=== PATIENT | male | born 1980 | race Caucasian/White ===

== ENCOUNTER 2020-08-13 03:01 | Inpatient (IN) | payer MEDICAID ==
[~2020-08-13] VITALS: Ht 177.8 cm; Wt 75.0 kg
[~2020-08-13 03:01] MED LIST: BUPR1FIL3 SL; LISI40TA4 PO
[2020-08-13] MEDS ORDERED: vancomycin/NS 1 GM ADD-VANTAGE 250 ML IV ONE (04:30)
[2020-08-13] MEDS ORDERED: morphine 4 MG/ML inj SYRINge IV ONE (04:30)
[2020-08-13 05:48] LABS: ALANINE AMINOTRANSFERASE 24 U/L (12-78); ALBUMIN/GLOBULIN RATIO 0.9 (1.1-1.5); ALKALINE PHOSPHATASE 98 IU/L (46-116); ANION GAP 7 (8-16); ASPARTATE AMINO TRANSFERASE 15 U/L (10-37); BILIRUBIN,TOTAL 0.2 MG/DL (0.1-1.0); BLOOD UREA NITROGEN 16 MG/DL (7-18); BUN/CREATININE RATIO 21.1 (5.4-32.0); CHLORIDE 104 MMOL/L (99-107); CREATININE 0.76 MG/DL (0.60-1.10); GLUCOSE 99 MG/DL (70-104); POTASSIUM 3.5 MMOL/L (3.5-5.1); SODIUM 139 MMOL/L (135-145); TOTAL CARBON DIOXIDE 27.6 MMOL/L (24-32); TOTAL PROTEIN 6.4 G/DL (6.4-8.2); eGFR > 90 ML/MIN
[2020-08-13 06:11] LABS: BASOPHILS % (AUTO) 0.5 % (0-1); EOSINOPHILS # (AUTO) 0.2 X10'3 (0-0.9); EOSINOPHILS % (AUTO) 3.1 % (0-6); HEMATOCRIT 30.9 % (42.0-52.0); HEMOGLOBIN 10.4 g/dl (14.0-17.9); LYMPHOCYTES # (AUTO) 1.5 X10'3 (1.1-4.8); LYMPHOCYTES % (AUTO) 21.8 % (21-51); MEAN CORPUSCULAR HGB CONC 33.7 g/dL (33.0-36.5); MEAN CORPUSCULAR VOLUME 89.1 FL (78-98); MEAN PLATELET VOLUME 7.6 FL (7.4-10.4); MONOCYTES # (AUTO) 0.9 X10'3 (0-0.9); MONOCYTES % (AUTO) 13.8 % (2-12); NEUTROPHILS # (AUTO) 4.2 X10'3 (1.8-7.7); NEUTROPHILS % (AUTO) 60.8 % (42-75); PLATELET COUNT 162 X10'3 (140-440); RED BLOOD COUNT 3.46 X10'6 (4.70-6.10); WHITE BLOOD COUNT 6.9 X10'3 (4.5-11.0)
[2020-08-13 08:09] VITALS: BP 158/88
[2020-08-13] MEDS ORDERED: normal saline 1000ml 1,000 ML IV SCH ×2 (08:16→10:25)
[2020-08-13] MEDS ORDERED: mag hydrox/Alum hydrox/simeth 30ml oral suspension PO PRN (08:20)
[2020-08-13] MEDS ORDERED: acetaminophen 325mg tablet PO PRN ×2 (08:20→10:25)
[2020-08-13] MEDS ORDERED: magnesium hydroxide 30ml (MOM) UD suspension PO PRN (08:20)
[2020-08-13] MEDS ORDERED: ondansetron/PF 4mg/2ml inj IV PRN ×2 (08:20→10:25)
[2020-08-13] MEDS ORDERED: potassium CL 10mEq/100ml bag 100 ML IV PRN ×2 (10:25)
[2020-08-13] MEDS ORDERED: HYDROcodone/acetaminophen 5mg/325mg tablet PO PRN (10:25)
[2020-08-13] MEDS ORDERED: magnesium 4gm in 100ml NS 100 ML IV PRN (10:25)
[2020-08-13] MEDS ORDERED: magnesium 2GM in 50ml NS 50 ML IV PRN (10:25)
[2020-08-13] MEDS ORDERED: magnesium Cl slow-release 64mg tablet PO PRN (10:25)
[2020-08-13] MEDS ORDERED: potassium Cl 20 mEq SR tablet PO PRN ×2 (10:25)
[2020-08-13] MEDS ORDERED: vancomycin/NS 1 GM ADD-VANTAGE 250 ML IV SCH (13:00)
[2020-08-13] MEDS ORDERED: K and/or MAG REPLACEMENT MC SCH (20:00)
[2020-08-13] MEDS ORDERED: docusate sod 100mg capsule PO SCH (20:00)
== END 2020-08-13 11:08 | disposition left against medical advice (07) | DRG 383 ==
LOC: ER 03:01 → ED HOLD 08:16 → MERGE 08:16 → ORTHO 4S 11:01
PROVIDERS: ADMIT Internal Medicine; ATTEND Internal Medicine
DX: L03.114 Cellulitis of left upper limb (principal); I10 Essential (primary) hypertension; F17.200 Nicotine dependence, unspecified, uncomplicated; Z53.29 Procedure and treatment not carried out because of patient's decision for other reasons; Z88.0 Allergy status to penicillin
CPT/HCPCS: 36415; 73130; 80053; 85025; 87081; 99285; G0378; J2270; J3370; J7030

== ENCOUNTER 2020-08-30 18:04 | Emergency (ER) | payer MEDICAID ==
[~2020-08-30] VITALS: Ht 177.8 cm; Wt 81.8 kg
[~2020-08-30 18:04] MED LIST changes: +LIDOcaine 1% W/epiNEPHrine 1:100,000 20ml vial ONE
[2020-08-30 18:16] VITALS: BP 156/98
[2020-08-30] MEDS ORDERED: SULF1TAB49 PO (18:51)
[2020-08-30] MEDS ORDERED: CEPH-572 PO (18:51)
[2020-08-30] MEDS ORDERED: cephalexin 250mg capsule PO ONE (18:55)
[2020-08-30] MEDS ORDERED: sulfamethoxazole/trimethoprim DS (800/160mg) tablet PO ONE (18:55)
== END 2020-08-30 19:27 | disposition home or self-care (01) ==
LOC: ER 18:04
DX: L02.01 Cutaneous abscess of face (principal); I10 Essential (primary) hypertension; Z59.0 Homelessness; Z88.0 Allergy status to penicillin; Z79.2 Long term (current) use of antibiotics; Z79.899 Other long term (current) drug therapy
CPT/HCPCS: 10060; 99283

== ENCOUNTER 2020-11-18 19:59 | Emergency (ER) | payer MEDICAID ==
[~2020-11-18] VITALS: Ht 177.8 cm; Wt 62.8 kg
[~2020-11-18 19:59] MED LIST changes: -LIDOcaine 1% W/epiNEPHrine 1:100,000 20ml vial ONE
[2020-11-18 20:06] VITALS: BP 177/116
[2020-11-18] MEDS ORDERED: ketorolac trometh inj. 60 MG/2 ML VIAL IM ONE (20:25)
[2020-11-18] MEDS ORDERED: HYDROcodone/acetaminophen 5mg/325mg tablet PO ONE (20:25)
[2020-11-18] MEDS ORDERED: ORPH100T2 PO (20:25)
[2020-11-18] MEDS ORDERED: NAPR-56 PO (20:25)
[2020-11-18] MEDS ORDERED: orphenadrine citrate 60mg/2ml inj. IM ONE (20:25)
[2020-11-18] MEDS ORDERED: HYDR-4383 PO (20:25)
== END 2020-11-18 20:58 | disposition home or self-care (01) ==
LOC: ER 19:59
DX: S39.012A Strain of muscle, fascia and tendon of lower back, initial encounter (principal); M54.32 Sciatica, left side; M62.838 Other muscle spasm; I10 Essential (primary) hypertension; Z59.0 Homelessness; Z88.0 Allergy status to penicillin; Z79.899 Other long term (current) drug therapy; X58.XXXA Exposure to other specified factors, initial encounter; Y93.89 Activity, other specified; Y92.89 Other specified places as the place of occurrence of the external cause; Y99.8 Other external cause status
CPT/HCPCS: 96372; 99284; J1885; J2360

== ENCOUNTER 2023-11-05 09:43 | Emergency (ER) | payer MEDICAID ==
[~2023-11-05] VITALS: Ht 177.8 cm; Wt 70.5 kg
[~2023-11-05 09:43] MED LIST changes: -BUPR1FIL3 SL; -LISI40TA4 PO; +NO HOME MEDS
[2023-11-05] MEDS ORDERED: cloNIDine 0.1 mg tablet PO ONE ×3 (10:15→12:05)
[2023-11-05] MEDS ORDERED: lisinopril 10 MG tablet PO ONE (10:35)
[2023-11-05 12:30] VITALS: BP 197/118; PULSE 72; RESP 18; TEMP 98; O2SAT 100
== END 2023-11-05 12:32 | disposition home or self-care (01) ==
LOC: ER 09:44
DX: I10 Essential (primary) hypertension (principal); Z59.00 Homelessness unspecified; Z88.0 Allergy status to penicillin; Z79.899 Other long term (current) drug therapy
CPT/HCPCS: 93005; 99285

== ENCOUNTER 2025-02-28 12:21 | Emergency (ER) | payer MEDICAID ==
[2025-02-28 12:26] VITALS: BP 178/127; PULSE 94; RESP 18; TEMP 97.5; O2SAT 100
[2025-02-28] MEDS ORDERED: AMLO10TA5 PO (13:08)
[2025-02-28] MEDS ORDERED: LISI20TA28 PO (13:08)
== END 2025-02-28 13:32 | disposition home or self-care (01) ==
LOC: ER 12:21
DX: I10 Essential (primary) hypertension (principal); Z76.0 Encounter for issue of repeat prescription; Z88.0 Allergy status to penicillin
CPT/HCPCS: 99281

== ENCOUNTER 2025-08-19 09:22 | Emergency (ER) | payer MEDICAID ==
[~2025-08-19] VITALS: Ht 177.8 cm; Wt 69.7 kg
[~2025-08-19 09:22] MED LIST changes: +AMLO10TA5 PO
[2025-08-19 09:35] VITALS: BP 163/131; PULSE 87; RESP 18; TEMP 97.3; O2SAT 98
[2025-08-19] MEDS ORDERED: AMLO10TA13 PO (10:00)
[2025-08-19] MEDS ORDERED: LISI20TA28 PO (10:00)
--- NOTE | 2025-08-19 10:01 | Physician Documentation ---
HPI ~ General Chief Complaint: Medication Refill Stated Complaint: HIGH BP Time Seen by MD: 10:01 Primary Medical Doctor: DEVIN VARGAS History of Present Illness HPI Comments This is a 45-year-old male with a history of hypertension who presents requesting refills of his amlodipine 10 mg daily and lisinopril 20 mg daily. He reports that he has not been successful in finding a primary care provider. However, he has recently turned in the packet and we will be seeing a provider at [facility] within the next month. He denies any other symptoms or concerns to include chest pain or shortness of breath, fever or chills. Medication Reconciliation Allergies: Coded Allergies: Penicillins (Unverified Allergy, Intermediate, 02/28/25) Uncoded Allergies: PENCILLINS (Allergy, Intermediate, HIVES, 08/13/20) Scheduled Amlodipine Besylate (Norvasc), 1 TAB PO DAILY Amlodipine Besylate (Amlodipine Besylate), 1 TAB PO DAILY Lisinopril (Lisinopril), 1 TAB PO DAILY Miscellaneous Medications Home Med List (No Home Medications), (Reported) Past Medical History Past Medical History: Hypertension Past Surgical History: no surgical history Alcohol Use: None Drug Use: none Lives In: Homeless Review of Systems ROS As stated above in the HPI, otherwise all systems are reviewed and negative. Physical Exam Physical Exam Vital Signs: Temperature: 97.3, Source: Oral, Heart Rate: 87, Respiratory Rate: 18, BP: 163/131, Pulse Oximetry: 98, Weight: 69.700 Physical Exam General: Alert, no apparent distress. Neck: Full range of motion. Respiratory: Lungs clear, no respiratory distress. Chest: No accessory muscle use. Cardiovascular: Regular rate and rhythm, no murmurs. Gastrointestinal: Soft, nontender, nondistended. Bowels sounds present. Extremities: Normal range of motion, no deformity. Neurologic: Oriented x4. Psychiatric: Normal mood and affect. Skin: Normal color, warm and dry. No edema, no ecchymosis. Progress Results/Orders Results/Orders Vital Signs 08/19/25 09:35 Temp 97.3 Pulse 87 Resp 18 B/P (MAP) 163/131 Pulse Ox 98 Medical Decision Making Differential Dx:Considerations: Include: Adverse circumstances, Economic, Psychosocial, Medical services unavail., Medication refill, Medication non- compliance Departure Time of Disposition: 10:00 Disposition: 01 HOME / SELF CARE / HOMELESS Impression: Primary Impression: General medical exam Additional Impression: Hypertension Discharge Instructions: Hypertension, Adult Additional Instructions: You were provided with a month refill of your blood pressure medications. Please continue to work on finding a primary care for further refills. Return to the emergency department with any emergent needs or concerns. Referrals: NO PRIMARY CARE PROVIDER (PCP) Prescriptions Amlodipine Besylate (Amlodipine Besylate) 10 Mg Tablet 1 TAB PO DAILY for 30 Days, #30 TAB 0 Refills Prov: DANIA ZABALA NP 08/19/25 Lisinopril (Lisinopril) 20 Mg Tablet 1 TAB PO DAILY for 30 Days, #30 TAB Prov: DANIA ZABALA NP 08/19/25 Education Educated: Patient Educated regarding: diagnosis, treatment, prognosis, need for follow up Signature Scribe Signature: x Attestation: The note accurately reflects work and decisions made by me.Dania Salazar NP 08/19/25 10:34 DANIA ZABALA NP Aug 19, 2025 10:01
== END 2025-08-19 10:08 | disposition home or self-care (01) ==
LOC: ER 09:23
DX: I10 Essential (primary) hypertension (principal); Z88.0 Allergy status to penicillin
CPT/HCPCS: 99281; 99282

== ENCOUNTER 2025-09-26 08:52 | Emergency (ER) | payer MEDICAID ==
[~2025-09-26] VITALS: Ht 177.8 cm; Wt 75.6 kg
[~2025-09-26 08:52] MED LIST changes: +AMLO10TA13 PO
[2025-09-26 08:56] VITALS: BP 145/96; PULSE 67; RESP 16; TEMP 98; O2SAT 98
[2025-09-26] MEDS ORDERED: LISI20TA28 PO (09:07)
[2025-09-26] MEDS ORDERED: AMLO-888 PO (09:07)
--- NOTE | 2025-09-26 09:07 | Physician Documentation ---
HPI ~ General Chief Complaint: Medication Refill Stated Complaint: MED REQUEST Time Seen by MD: 08:56 Primary Medical Doctor: DEVIN MAJANO [facility] History of Present Illness HPI Comments 45-year-old male present as the presents to the ED requesting medication refill for both amlodipine and lisinopril. Denies any cardiac symptoms shortness of breath nausea vomit Medication Reconciliation Allergies: Coded Allergies: Penicillins (Unverified Allergy, Intermediate, 02/28/25) Uncoded Allergies: PENCILLINS (Allergy, Intermediate, HIVES, 08/13/20) Scheduled Amlodipine Besylate (Norvasc), 1 TAB PO DAILY Amlodipine Besylate (Amlodipine Besylate), 1 TAB PO DAILY Miscellaneous Medications Home Med List (No Home Medications), (Reported) Discontinued Medications Lisinopril (Lisinopril), 1 TAB PO DAILY Discontinued Reason: Auto Discontinued Past Medical History Past Medical History: Hypertension Past Surgical History: no surgical history Alcohol Use: None Drug Use: none Lives In: Homeless Review of Systems All Other Systems at this time: Reviewed and Negative ROS As stated above in the HPI, otherwise all systems are reviewed and negative. Physical Exam Physical Exam Vital Signs: Temperature: 98.0, Source: Oral, Heart Rate: 67, Respiratory Rate: 16, BP: 145/96, Pulse Oximetry: 98, Weight: 75.600 Oxygen Flow Rate: 0 Physical Exam General: Alert, no apparent distress. HEENT: PERRL, EOMI, no injection, moist mucous membranes. Neck: Full range of motion. Respiratory: Lungs clear, no respiratory distress. Chest: No accessory muscle use. Cardiovascular: Regular rate and rhythm, no murmurs. Gastrointestinal: Soft, nontender, nondistended. Bowels sounds present. Extremities: Normal range of motion, no deformity. Neurologic: Oriented x4. Psychiatric: Normal mood and affect. Skin: Normal color, warm and dry. No edema, no ecchymosis. Progress Results/Orders Results/Orders Vital Signs 09/26/25 08:56 Temp 98.0 Pulse 67 Resp 16 B/P (MAP) 145/96 Pulse Ox 98 O2 Flow Rate 0 Medical Decision Making Additional information obtaine: old records Findings Meds refilled as requested Differential Dx:Considerations: Include: Adverse circumstances, Economic, Psychosocial, Medical services unavail., Medication refill, Medication non- compliance, Other Departure Disposition: HOME / SELF CARE / HOMELESS Impression: Primary Impression: General medical exam Condition: Stable Discharge Instructions: Medicine Refill at the Emergency Department Referrals: NO PRIMARY CARE PROVIDER (PCP) Prescriptions Amlodipine Besylate (Norvasc) 10 Mg Tablet 1 TAB PO DAILY for 30 Days, #30 TAB 0 Refills Prov: PIERCE SOSA NP 09/26/25 Lisinopril (Lisinopril) 20 Mg Tablet 1 TAB PO DAILY for 30 Days, #30 TAB Prov: PIERCE SOSA NP 09/26/25 Education Educated: Patient Educated regarding: diagnosis Signature Scribe Signature: b Attestation: Scribed for Pierce Sosa Assistant [employer] Manager Operations by Pierce Salazar NP . 09/26/25 09:07 PIERCE SOSA NP Sep 26, 2025 09:07
== END 2025-09-26 09:20 | disposition home or self-care (01) ==
LOC: ER 08:54
DX: Z00.00 Encounter for general adult medical examination without abnormal findings (principal); I10 Essential (primary) hypertension; Z76.0 Encounter for issue of repeat prescription; Z79.899 Other long term (current) drug therapy
CPT/HCPCS: 99282